=== PATIENT | male | born 1940 | race Caucasian/White ===

== ENCOUNTER → 2017-02-10 | Outpatient (CLI) | payer MEDICARE, OTHER ==
[~2017-02-10] MED LIST: AMINOPHYLLINE INJ/PF 250 MG/10 ML SDV IV ONE; REGADENOSON INJ 0.4 MG/5 ML DISP.SYRIN IV ONE
--- NOTE | 2017-02-11 10:50 | DRAGON STRESS TEST REPORT ---
INTRAVENOUS LEXISCAN CARDIOLITE STRESS TEST USING SINGLE PHOTON EMMISION COMPUTERIZED TOMOGRAPHIC. INDICATION : Preop cardiovascular evaluation CARDIAC RISK FACTORS: Hypertension, tobacco abuse, COPD, history of lung cancer RESTING EKG: Sinus rhythm without any baseline ST-T wave changes STRESS EKG: No significant changes noted with LexiScan bolus REASON FOR TERMINATION: Protocol. PROCEDURE REPORT: Baseline heart rate 85 beats per minute with blood pressure of 139/82. Patient had no significant complaints. Heart rate at 2 minutes post bolus 98 with a blood pressure of 127/62. 3 minutes post bolus heart rate 92 with blood pressure of 126/63 No significant EKG changes were noted. Patient had no significant complaints during the procedure or postprocedure. Patient injected with Aminophyllin 75 mg at 3 minutes or later after Lexiscan bolus. CONCLUSIONS: Normal EKG and hemodynamic response to IV LexiScan. NUCLEAR DATA: At rest the patient was given 10.82 millicuries of technetium 99 sestamibi injected intravenously. As per protocol rest gated SPECT images were obtained. Subsequently the patient was given intravenous LexiScan at a dose of 0.4 mg in 5 mL intravenously, followed by flush with normal saline. Subsequently the stress dose of 32.1 millicuries of technetium 99 sestamibi was injected intravenously. As per protocol stress gated images were obtained. NUCLEAR INTERPRETATION: Both raw and processed data were used for interpretation. Visual, qualitative, computer-generated quantitative data was used. There was good myocardial uptake of technetium compound. Motion artifact and soft tissue attenuations were noted. Increased visceral uptake was noted. No definitive areas of transient perfusion defect noted. No definitive areas of fixed perfusion defect or scars noted. EKG gated imaging showed LV EF at 47 %, rest and stress gated EF similar visually, with mild diffuse hypokinesia. T. I D. ratio was 0.86. Lung heart ratio noted to be within normal limits 0.30. No significant extracardiac and abnormal radiotracer activities were noted. RV free wall uptake was noted to be []. IMPRESSION: Also refer to comments under nuclear interpretation. Also test results needs to be interpreted in the context of pretest probability. 1. There is no definitive scintigraphic evidence of LexiScan induced myocardial ischemia. 2. There is no definitive scintigraphic evidence of myocardial infarction/scar. 3. EKG gated imaging shows left ventricular ejection fraction of approximately 47 %. Clinical correlation with echocardiogram derived LVEF is requested. 4. Clinical correlation requested as occasionally single vessel disease or balanced ischemia could be missed. In approximately 10% of the cases Lexiscan may not cause adequate vasodilatory stress. RECOMMENDATIONS: Aggressive risk factor modification, medical therapy. Clinical correlation with echocardiogram derived ejection fraction. Inability to exercise by itself can lead to increased cardiovascular event risks. Consider cardiology consultation and or follow-up if clinically indicated. I AM AVAILABLE FOR CARDIOLOGY CONSULTATION AND FOLLOWUP IF REQUESTED BY PMD Yodit Arensa M.D., DINESH [employer] loan analyst, Board certified in cardiovascular diseases, Nuclear cardiology, Echocardiography Cardiac CT and cardiac MRI Ph. [phone] ROSE MARIE
== END ==
LOC: RAD 06:50
PROVIDERS: ATTEND Surgery
DX: Z01.810 Encounter for preprocedural cardiovascular examination (principal); C34.12 Malignant neoplasm of upper lobe, left bronchus or lung
CPT/HCPCS: 93017; 78452; A9500; J2785; J0280; Q9969

== ENCOUNTER 2017-07-29 12:46 | Outpatient (CLI) | payer MEDICARE, OTHER ==
[2017-07-29] MEDS ORDERED: NORMAL SALINE 1000 ML 1,000 ML IV PRN (13:26)
[2017-07-29] MEDS ORDERED: DEXAMETHASONE SOD PHOSPHATE 10 MG in NORMAL SALINE 50 ML IV PRN (13:29)
[2017-07-29 14:32] VITALS: BP 100/58
== END 2017-07-29 16:00 | disposition home or self-care (01) ==
LOC: II 12:46 → 5TH 12:53 → II 16:00
PROVIDERS: ATTEND Internal Medicine
PROC: 3E0337Z Introduction of Electrolytic and Water Balance Substance into Peripheral Vein, Percutaneous Approach (ICD-10-PCS; principal; 2017-07-29)
PROC: 3E0333Z Introduction of Anti-inflammatory into Peripheral Vein, Percutaneous Approach (ICD-10-PCS; 2017-07-29)
DX: R05 Cough (principal); E86.0 Dehydration
CPT/HCPCS: 96367; 96360; J1100; 96361; 96365